=== PATIENT | female | born 1975 | race Caucasian/White ===

== ENCOUNTER 2018-05-29 11:48 | Emergency (ER) | payer OTHER, SELFPAY ==
[2018-05-29 12:02] VITALS: BP 119/79; PULSE 78; RESP 20; TEMP 36.8; O2SAT 97
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
[2018-05-29] MEDS: Acetaminophen 500 MG TAB 1000 MG PO (12:53)
[2018-05-29 13:04] LABS: Bilirubin Negative (Negative); Blood Large (Negative); Clarity Sl Cloudy; Glucose Negative (Negative); Ketones Negative (Negative); Leukocyte Esterase Negative (Negative); Nitrite Negative (Negative); Specific Gravity 1.015 (1.005-1.025); Urobilinogen 0.2 EU/dL (Up TO 0.2); pH 5.5 (5-8)
[2018-05-29 13:25] LABS: Abs Immature Grans 0.01 k/cumm (0.0-0.09); Absolute Basophil Count 0.02 k/cumm (0.0-0.2); Absolute Eosinophil Count 0.03 k/cumm (0.0-0.7); Absolute Monocyte Count 0.83 k/cumm (0.11-0.7); Absolute Neutrophil Count 7.26 k/cumm (1.2-6.7); Basophils % 0.2; Eosinophils % 0.3; HCT 42.7 % (36.0-46.0); HGB 14.2 g/dL (12.0-15.5); Immature Grans % 0.1; Lymphocytes % 18.1; Mean Corp. HGB Concentration 33.3 g/dL (32.0-36.0); Mean Corpuscular Volume 87.3 fL (80-95); Mean Platelet Volume 9.7 fL (8.0-11.0); Monocytes % 8.3; Platelet Count 287 x1000/uL (130-400); RBC 4.89 m/cumm (4.00-5.20); RBC Distribution Width 12.6 % (11.7-14.6); White Blood Cell Count 9.95 k/cumm (4.4-10.8)
[2018-05-29 13:28] LABS: WBC 0-2 HPF (0-5)
[2018-05-29 13:29] LABS: Bacteria Few HPF (Negative); C & S Indicated? No; Casts Negative LPF (Negative); Crystals Negative HPF (Negative); Epithelial Cells Rare HPF (Negative); Mucus Trace (Negative); RBC 20-50 (0-2)
[2018-05-29 13:35] LABS: ALT 22 U/L (12-78); AST 16 U/L (15-37); Albumin 4.2 g/dL (3.4-5.0); Alkaline Phosphatase 74 U/L (46-116); Anion Gap 10.2 mmol/L (3-11); BUN 11 mg/dL (7-18); Bilirubin, Total 0.5 mg/dL (0.2-1.0); CO2 26.8 mmol/L (21.0-32.0); CREATININE 0.83 mg/dL (0.55-1.02); Calcium 9.2 mg/dL (8.5-10.1); Chloride 101 mmol/L (98-107); Glucose 95 mg/dL (70-100); Potassium 3.8 mmol/L (3.5-5.1); Sodium 138 mmol/L (136-145)
[2018-05-29] MEDS: Omnipaque 350 MG/ML 100 ML BTL IJ (14:29)
[2018-05-29 15:03] VITALS: BP 100/50; PULSE 60; RESP 16; O2SAT 97
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
--- NOTE | 2018-06-05 10:52 | PDOC.ERCMPRO ---
Care Management Progress Note 06/05-Dr Trejo requested assistance with a PCP on 05/28. Patient does not have PCP ([facility] resource protection specialist). Referral faxed to [facility]. [facility] faxed back that they have mailed new patient packet to patient to establish care.
== END 2018-05-29 15:29 | disposition home or self-care (01) ==
PROVIDERS: Emergency Provider Student in an Organized Health Care Education/Training Program
DX: S06.0X0A Concussion without loss of consciousness, initial encounter (principal); M54.9 Dorsalgia, unspecified; R10.30 Lower abdominal pain, unspecified; M54.2 Cervicalgia; M48.54XA Collapsed vertebra, not elsewhere classified, thoracic region, initial encounter for fracture; D25.9 Leiomyoma of uterus, unspecified; V49.9XXA Car occupant (driver) (passenger) injured in unspecified traffic accident, initial encounter; M79.18 Myalgia, other site
CPT/HCPCS: 36415; 74177; 80053; 81025; 99285; 70450; 71260; 72125; 81003; 81015; 85025; 99284; J3490

== ENCOUNTER 2018-06-13 12:46 | Outpatient (REF) | payer OTHER, SELFPAY ==
--- NOTE | 2018-06-13 12:15 | PAPFT_PTH ---
PATIENT: Epifanio Herman LOC: [facility] U#:[id number] AGE/SX: 42/F ROOM: RE06/13/[address]: Viv Marrero MD : 1975 BED: DIS: 06/13/2018 SPEC #: [id number] RECD: 06/13/18 12:53 STATUS: LAURA REQ #: [id number] MONALISA: 06/13/18 12:[address]: Viv Marrero DEPT: [facility] Cytology RECD BY: Michelle Pruett ENTERED: 06/13/18 12:54 SP TYPE: PAPFT OTHR DR: Unknown,Unknown Tissues: 1 - CX/ENDOCX FOR PAP SMEARS Procedures: PAP THIN PREP/UVM Screening HPV DNA PROBE Comments: [id number]
== END 2018-06-13 13:06 ==
LOC: LBN 12:46
PROVIDERS: Visit Provider Obstetrics & Gynecology
DX: Z12.4 Encounter for screening for malignant neoplasm of cervix (principal); Z11.51 Encounter for screening for human papillomavirus (HPV)
CPT/HCPCS: 88142; 87624

== ENCOUNTER 2018-09-12 00:32 | Outpatient (CLI) | payer OTHER, SELFPAY ==
--- NOTE | 2018-09-12 07:58 | DI.US_ITS ---
SYMPTOM/DIAGNOSIS: F/U UTERINE FIBROID, d25.9 PELVIC ULTRASOUND: A transabdominal and transvaginal examination was carried out according to the usual protocol. The uterus measures 8.7 cm in length , 4.4 cm in height, and 4.8 cm in width with an endometrial stripe thickness of 11.4 mm. There is an anterior fundal and uterine fibroid which measures 8.6 x 7.6 x 8.4 cm and multiple small Nabothian cysts are seen. An IUD is noted in the endometrial cavity. There is an 8.6 x 7.6 x 8.4 cm anterior uterine fibroid. The right ovary measures 3.6 x 1.5 x 1.0 cm and the left ovary 4.3 x 1.7 x 1.8 cm. The kidneys are unremarkable. There is no evidence of pelvic free fluid. SUMMARY: An IUD is noted in the endometrial cavity. There is an 8.6 x 7.6 x 8.4 cm anterior uterine fibroid.
== END 2018-09-12 00:52 ==
PROVIDERS: Visit Provider Obstetrics & Gynecology
DX: D25.9 Leiomyoma of uterus, unspecified (principal); N88.8 Other specified noninflammatory disorders of cervix uteri; Z97.5 Presence of (intrauterine) contraceptive device
CPT/HCPCS: 76830; 76856

== ENCOUNTER 2018-09-20 01:04 | Outpatient (CLI) | payer OTHER, SELFPAY ==
--- NOTE | 2018-09-20 09:30 | DI.MAMMO_ITS ---
SYMPTOM/DIAGNOSIS: SCREENING, Z12.31, BASELINE MAMMOGRAMS: Mammograms were interpreted according to the usual protocol including computer analysis with CAD system, tomosynthesis and C view imaging. The baseline examination reveals breast tissue of moderate radiodensity. The possibility of a small mass in the superior portion of the left breast is raised based on the mediolateral projection. There are no suspicious calcifications. SUMMARY: Question small area of nodularity in the superior left breast. Further assessment with a mediolateral compression spot film and ultrasound is recommended. Category 0. Breast density, category B. MQSA ASSESSMENT OF FINDINGS: Incomplete: Needs additional imaging evaluation. Category 0. Patient will receive a letter notifying them of these results. BI-RADS category B. There are scattered areas of fibroglandular density.
== END 2018-09-20 01:24 ==
PROVIDERS: Visit Provider Obstetrics & Gynecology
DX: Z12.31 Encounter for screening mammogram for malignant neoplasm of breast (principal); R92.8 Other abnormal and inconclusive findings on diagnostic imaging of breast
CPT/HCPCS: 77063; 77067

== ENCOUNTER 2018-10-25 00:27 | Outpatient (CLI) | payer OTHER, SELFPAY ==
--- NOTE | 2018-10-25 09:49 | DI.COMBO_ITS ---
SYMPTOM/DIAGNOSIS: F/U MAMMO, ? SMALL AREA OF NODULARITY LT BREAST LEFT BREAST ADDITIONAL VIEWS AND LEFT BREAST ULTRASOUND: Additional images are interpreted according to the usual protocol including tomosynthesis and 2D imaging. Mediolateral compression spot films of the left breast were obtained today and again reveal the region of increased density in the superior portion of the breast. No discrete mass is seen. At ultrasound, there is no evidence of a cyst or mass. SUMMARY: No evidence of malignancy. Category 1. Yearly screening mammography is recommended. [facility] ASSESSMENT OF FINDINGS: Negative. Category 1. Patient will receive a letter notifying them of these results. BI-RADS category B. There are scattered areas of fibroglandular density.
== END 2018-10-25 00:47 ==
PROVIDERS: Visit Provider Obstetrics & Gynecology
DX: Z12.31 Encounter for screening mammogram for malignant neoplasm of breast (principal); R92.8 Other abnormal and inconclusive findings on diagnostic imaging of breast; N60.82 Other benign mammary dysplasias of left breast
CPT/HCPCS: 76642; 77063; 77067

== ENCOUNTER 2020-03-11 01:30 | Outpatient (CLI) | payer OTHER, SELFPAY ==
[2020-03-13 17:44] LABS: Patient Race White; SARS-CoV-2 RNA Undetected (Undetected); SARS-CoV-2 Specimen Source Nasopharynx
== END 2020-03-11 01:50 ==
PROVIDERS: Visit Provider Family Medicine
DX: Z11.59 Encounter for screening for other viral diseases (principal)
CPT/HCPCS: U0003

== ENCOUNTER 2022-05-19 14:59 | Outpatient (REF) | payer BC, SELFPAY ==
--- NOTE | 2022-05-19 14:30 | PAPFT_PTH ---
PATIENT: Epifanio Herman LOC: [facility] U#:[id number] AGE/SX: 46/F ROOM: RE05/19/[address]: Monica Martinez : 1975 BED: DIS: 05/19/2022 SPEC #: [id number] RECD: 05/19/22 17:43 STATUS: LAURA REEvangelina #: [id number] MONALISA: 05/19/22 14:[address]: Monica Martinez DEPT: [facility] Cytology RECD BY: Michelle Pruett ENTERED: 05/19/22 17:43 SP TYPE: PAPFT EBEN DR: Unknown,Unknown Tissues: 1 - CX/ENDOCX FOR PAP SMEARS Procedures: PAP THIN PREP/[facility] Screening HPV DNA PROBE Comments: [id number]
== END 2022-05-19 15:00 | disposition home or self-care (01) ==
LOC: LBN 14:59
PROVIDERS: Visit Provider Obstetrics & Gynecology Gynecology
DX: Z12.4 Encounter for screening for malignant neoplasm of cervix (principal); Z87.410 Personal history of cervical dysplasia; R87.618 Other abnormal cytological findings on specimens from cervix uteri; Z11.51 Encounter for screening for human papillomavirus (HPV)
CPT/HCPCS: 88142; 87624

== ENCOUNTER 2022-09-13 00:53 | Outpatient (CLI) | payer BC, SELFPAY | END 2022-09-13 01:13 | PROVIDERS: Visit Provider Obstetrics & Gynecology Gynecology | DX: Z12.31 Encounter for screening mammogram for malignant neoplasm of breast (principal) | CPT/HCPCS: 77063; 77067 ==

== ENCOUNTER 2024-09-06 14:53 | Emergency (ER) | payer BC, SELFPAY ==
[2024-09-06 14:55] VITALS: BP 146/77; PULSE 80; RESP 14; TEMP 36.8; O2SAT 99
[2024-09-06] MEDS: Lidocaine 5% Patch 1 PATCH TP (15:57)
[2024-09-06] MEDS: Ketorolac 15 MG/ML VIAL IVP (15:57)
[2024-09-06] MEDS: Cyclobenzaprine 10 MG TAB PO (15:57)
[2024-09-06] MEDS: Lactated Ringers 1,000 ML 1000 ML IV (15:57)
[2024-09-06] MEDS: ACETAMINOPHEN 1,000 MG/100 ML BAG 400 MG IVPB (15:58)
[2024-09-06 16:01] LABS: Lactate 0.5 mmol/L (<or=2.0)
[2024-09-06 16:04] LABS: Abs Immature Grans 0.04 10^3/uL (0.0-0.06); Absolute Basophil Count 0.03 10^3/uL (0.0-0.2); Absolute Monocyte Count 0.96 10^3/uL (0.1-0.8); Absolute Neutrophil Count 6.93 10^3/uL (1.2-6.7); Basophils % 0.3 %; HCT 41.2 % (36.0-46.0); HGB 13.8 g/dL (11.2-15.7); Immature Grans % 0.4 %; Lymphocytes % 22.9 %; MCH 29.6 pg (27.0-33.0); MCHC 33.5 % (32.0-36.0); MCV 88 fL (80-95); MPV 9.2 fL (8.0-11.0); Monocytes % 9.2 %; Neutrophils % 66.2 %; Platelet Count 275 10^3/uL (130-400); RBC 4.67 10^6/uL (3.93-5.22); RDW 12.3 % (11.7-14.6); RDW-SD 39.6 fL; WBC 10.46 10^3/uL (4.4-10.8)
[2024-09-06 16:08] LABS: ESR 6 mm/hr (0-20)
[2024-09-06 16:16] LABS: PTT Activated 24.8 sec (20.6-30.2); Prothrombin Time 10.1 sec (9.1-11.1)
[2024-09-06 16:20] LABS: ALT 27 U/L (14-59); AST 17 U/L (15-37); Albumin 4.1 g/dL (3.4-5.0); Alkaline Phosphatase 86 U/L (46-116); Anion Gap 8.1 mmol/L (3-11); BUN 11 mg/dL (7-18); Bilirubin, Total 0.4 mg/dL (0.2-1.0); CO2 25.9 mmol/L (21.0-32.0); CREATININE 0.7 mg/dL (0.55-1.02); Calcium 9.6 mg/dL (8.5-10.1); Chloride 105 mmol/L (98-107); Estimated GFR 107.28 (mL/min/1.73m2); Glucose 92 mg/dL (74-106); Sodium 139 mmol/L (136-145); Total Protein 7.6 g/dL (6.4-8.2)
[2024-09-06 16:31] LABS: Procalcitonin < 0.10 ng/mL
[2024-09-06 16:34] LABS: COVID-19 PCR Negative (Negative); Influenza A PCR Negative (Negative); Influenza B PCR Negative (Negative); RSV PCR Negative (Negative)
[2024-09-06 16:37] LABS: Source Nasopharynx
[2024-09-06] MEDS: Normal Saline - Diluent 50 ML VIAL IJ (16:41)
[2024-09-06] MEDS: Omnipaque 350 MG/ML 100 ML BTL IJ (16:42)
--- NOTE | 2024-09-06 16:43 | ED.GENADUL_ITS ---
Discharge Plan Disposition Patient Disposition: Home Condition: Good Discharge Details Clinical Impression: Acute neck pain Primary Care Provider: Unknown,Unknown ED Provider: Lane Trejo Home Meds and New Rx's Prescriptions: New cyclobenzaprine 10 mg tablet 10 mg PO TID Qty: 14 0RF lidocaine [Lidoderm] 5 % adhesive patch,medicated 1 patch Topical Q24H Qty: 15 0RF No Action ParaGard T 380A 380 square mm intrauterine device 1 device intrauterine ONCE Rx Instructions: as a single dose Discharge Instructions Instructions: Neck Pain ED Additional Instructions: At this time your laboratory workup has returned very reassuring. There is no e vidence to suggest significant infection based on your labs. Your imaging has also returned normal with no signs of significant vascular, osseous or infectious pathology. As we discussed together the symptoms likely stem from a muscular spasm component. However the definitive way to rule out certain neck pathologies is with a lumbar puncture. Together we have decided to hold off on any lumbar puncture at this time as there is no clear indication for it given the workup results. However if your symptoms do not improve, or worsen we may need further discussion for potential puncture in the future. In the meantime, please continue to take Tylenol and Motrin for pain. You can take 1000 mg of Tylenol every 6 hours and 800 mg of Motrin every 6 hours. These are the maximum doses. Please take the muscle relaxant cyclobenzaprine as prescribed. but do not take it when driving or operating any vehicles or heavy machinery, swimming, taking long baths, or operating firearms. Please apply the Lidoderm patches as prescribed. If you notice any worsening of your symptoms, or any new symptoms such as vomiting, diarrhea, fever, chills, shortness of breath, chest pain, numbness, weakness, or fainting , please return immediately to the emergency department for reevaluation. Please follow up with your primary care provider as soon as possible for reassessment and reevaluation. As always, it was a pleasure participating in your medical care today. Discharge Data Discharge Date/Time-TO BE ENTERED AT DEPARTURE: 09/06/24 18:37 HPI General Date/Time Provider Initiated Documentation: 09/06/24 14:57 . HPI Narrative: This is a very pleasant 48-year-old female with no significant past medical history, who does have an intrauterine device in place which is a copper device, she also has a history of a fibroid in the past, who presents today for evaluation of neck pain. Patient states that last night in the evening she had a very very mild headache, this is since completely resolved. However later during the night she developed a neck tightness that woke her up out of sleep. It was in the mid to upper portion of her neck. It felt like a vice psychologist research assistant. It continued throughout the night and was present during the day. She describes pain when she tries to move her neck in various directions. She went to the physical therapist today who recommended further evaluation in the emergency department for potential nonmusculoskeletal assessment. Patient denies any trauma, choking, sudden movements, or recent chiropractic manipulation of her neck. She denies any fever or chills. She denies any vision changes, numbness or tingling. She denies any chest pain or shortness of breath. She and her partner were recently in [place] for some time, and just got back about 2 weeks ago. She denies any frontal headache pain. She denies any personal history of meningitis. She denies any other complaints at this time. No family or personal history of Noemi-Danlos syndrome, Marfan syndrome, aneurysms or brain cancer. She did take some ibuprofen around noon without significant improvement of her symptoms. Related Data Home Medications ?Medication ?Instructions ?Recorded ?Confirmed copper 380 square mm intrauterine 1 device intrauterine ONCE 05/19/22 09/06/24 device (ParaGard T 380A) cyclobenzaprine 10 mg tablet 10 mg PO TID #14 tabs 09/06/24 lidocaine 5 % topical patch 1 patch topical Q24H #15 ea 09/06/24 (Lidoderm) Previous Rx's ?Medication ?Instructions ?Recorded cyclobenzaprine 10 mg tablet 10 mg PO TID #14 tabs 09/06/24 lidocaine 5 % topical patch 1 patch topical Q24H #15 ea 09/06/24 (Lidoderm) Allergies Allergy/AdvReac Type Severity Reaction Status Date / Time No Known Allergies Allergy Verified 09/06/24 14:55 General Stated Complaint: Nk/Back Pain EMMIE: 4 Exam Narrative Exam Narrative: 1.Const: Well-nourished, Well-developed, appearing stated age 2.Eyes: PERRL, no conjunctival injection, and symmetrical lids. 3.ENT: Atraumatic external nose and ears. Moist MM. Neck: Symmetric, trachea midline, No thyromegaly. No evidence of otitis media. No erythema in the posterior oropharynx. Patient demonstrates slight restriction for forward flexion of the neck, as well as lateral rotation. Mild subjective achiness/tenderness over the erector spinae musculature of the superior aspect of the neck going towards the nuchal component. However she demonstrates a negative Kernig's and Brudzinski sign. No bruits noted in the neck. No evidence of rash. 4.CVS: +S1/S2, Peripheral pulses 2+ and equal in all extremities. Brisk capillary refill in all extremities. 5.RESP: Unlabored respiratory effort. Clear to auscultation bilaterally. No wheezes rales or rhonchi 6.GI: Soft, Nontender/Nondistended, No hepatosplenomegaly. No guarding or rebound. 7.MSK: Normocephalic/Atraumatic, Extremities w/o deformity or ttp No cyanosis or clubbing, Normal movement of all extremities 8.Skin: Warm, Dry. No rashes or lesions. 9.Neuro: commercial housekeeper II-XII grossly intact. Sensation grossly intact, no focal neurologic deficits. All 6 cardinal planes of vision are fully intact. No evidence of rotatory or vertical nystagmus. The patient demonstrated a normal [id number], good dexterity. There was no evidence of dysdiadochokinesia. Patient was able to ambulate without difficulty. There was no wide-based gait. Romberg testing was normal. Dctd-gy-qznt testing was normal. Sensation was intact bilaterally as well as muscle strength bilaterally for all extremities. Patient was able to verbalize butter cup with no slurring, or miss pronunciation. 10.Psych: (AAO) x3. Appropriate mood and affect Course Vital Signs Vital signs: Vital Signs Temperature 36.8 C 09/06/24 14:55 Pulse 80 09/06/24 14:55 Respiratory Rate 14 09/06/24 14:55 Blood Pressure 146/77 H 09/06/24 14:55 Pulse Oximetry 99 09/06/24 14:55 Temperature 36.8 C 09/06/24 14:55 Pulse 80 09/06/24 14:55 Respiratory Rate 14 09/06/24 14:55 Blood Pressure 146/77 H 09/06/24 14:55 Blood Pressure Position Sitting 09/06/24 14:55 Pulse Oximetry 99 09/06/24 14:55 Oxygen Delivery Method Room Air 09/06/24 14:55 Oxygen Flow Rate 0 09/06/24 14:55 Pain Level 9 09/06/24 16:09 Lab/Test Results Lab/Test Results: Laboratory Tests Range/Units 09/06/24 09/06/24 15:46 15:54 WBC (4.4-10.8) 10^3/uL 10.46 RBC (3.93-5.22) 10^6/uL 4.67 Hgb (11.2-15.7) g/dL 13.8 Hct (36.0-46.0) % 41.2 MCV (80-95) fL 88 MCH (27.0-33.0) pg 29.6 MCHC (32.0-36.0) % 33.5 RDW (11.7-14.6) % 12.3 Plt Count (130-400) 10^3/uL 275 MPV (8.0-11.0) fL 9.2 Immature Gran % % 0.4 Neutrophils % % 66.2 Lymphocytes % % 22.9 Monocytes % % 9.2 Eosinophils % % 1.0 Basophils % % 0.3 Nucleated RBC % (0.0-0.3) % 0.0 Absolute Neutrophils (1.2-6.7) 10^3/uL 6.93 H Absolute Lymphocytes (1.2-3.4) 10^3/uL 2.40 Absolute Monocytes (0.1-0.8) 10^3/uL 0.96 H Absolute Eosinophils (0.0-0.7) 10^3/uL 0.10 Absolute Basophils (0.0-0.2) 10^3/uL 0.03 ESR (0-20) mm/hr 6 PT (9.1-11.1) sec 10.1 INR (0.9-1.1) 1.0 APTT (20.6-30.2) sec 24.8 VBG Lactate (<or=2.0) mmol/L 0.5 Sodium (136-145) mmol/L 139 Potassium (3.5-5.1) mmol/L 4.0 Chloride (98-107) mmol/L 105 Carbon Dioxide (21.0-32.0) mmol/L 25.9 Anion Gap (3-11) mmol/L 8.1 BUN (7-18) mg/dL 11 Creatinine (0.55-1.02) mg/dL 0.7 Est GFR (CKD-EPI 2020) (mL/min/1.73m2) 107.28 Glucose (74-106) mg/dL 92 Calcium (8.5-10.1) mg/dL 9.6 Total Bilirubin (0.2-1.0) mg/dL 0.4 AST (15-37) U/L 17 ALT (14-59) U/L 27 Alkaline Phosphatase (46-116) U/L 86 C-Reactive Protein (<or=0.5) mg/dL 0.70 H Total Protein (6.4-8.2) g/dL 7.6 Albumin (3.4-5.0) g/dL 4.1 Procalcitonin ng/mL < 0.10 COVID-19 Source Nasopharynx SARS-CoV-2 (PCR) (Negative) Negative Influenza Type A (PCR) (Negative) Negative Influenza Type B (PCR) (Negative) Negative RSV (PCR) (Negative) Negative Medical Decision Making This is a very pleasant 48-year-old female with no significant past medical history, who does have an intrauterine device in place which is a copper device, she also has a history of a fibroid in the past, who presents today for evaluation of neck pain. Patient states that last night in the evening she had a very very mild headache, this is since completely resolved. However later during the night she developed a neck tightness that woke her up out of sleep. It was in the mid to upper portion of her neck. It felt like a vice psychologist research assistant. It continued throughout the night and was present during the day. She describes pain when she tries to move her neck in various directions. She went to the physical therapist today who recommended further evaluation in the emergency department for potential nonmusculoskeletal assessment. Patient denies any trauma, choking, sudden movements, or recent chiropractic manipulation of her neck. She denies any fever or chills. She denies any vision changes, numbness or tingling. She denies any chest pain or shortness of breath. She and her partner were recently in [place] for some time, and just got back about 2 weeks ago. She denies any frontal headache pain. She denies any personal history of meningitis. She denies any other complaints at this time. No family or personal history of Noemi-Danlos syndrome, Marfan syndrome, aneurysms or brain cancer. She did take some ibuprofen around noon without significant improvement of her symptoms. Patient demonstrates slight restriction for forward flexion of the neck, as well as lateral rotation. Mild subjective achiness/tenderness over the erector spinae musculature of the superior aspect of the neck going towards the nuchal component. However she demonstrates a negative Kernig's and Brudzinski sign. No bruits noted in the neck. No evidence of rash. Cause of symptomatology is uncertain. Differential is certainly highest for musculoskeletal component or muscle spasm. Meningitis is certainly less likely with no fever, chills, or headache as she has no headache whatsoever. Patient is from [place] recently, there is concern, albeit low likelihood for parasitic component. Vascular pathology like vertebral artery dissection is also on the differential but without recent manipulation this is less likely. With no concerning red flags to suggest meningitis, aside for the presence of the neck stiffness I do not feel that emergent lumbar puncture is indicated currently, but I do feel that further imaging and hematology workup is indicated. We will evaluate with inflammatory markers, we will get a CT scan of the neck as well as a vascular assessment of that area. Will also treat for potential musculoskeletal component with Lidoderm patch, muscle relaxant and NSAID therapy. Will monitor closely and reassess. 6:30 PM Laboratory workup has returned, no white count, bandemia, or significant left shift. ESR is normal, CRP is minimally elevated at 0.7 and is not indicative of significant inflammatory component. Lactate is normal. Procalcitonin is normal suggesting no evidence to suggest sepsis. COVID flu and RSV testing is negative. CT imaging shows no occlusion, acute intercranial process, or vascular pathology. On reassessment patient still has some mild pain in the neck but feels notable change after medications. We had a long discussion between the patient myself and her partner. We discussed risks and benefits of lumbar puncture, deferment of lumbar puncture, the risks and benefits of both. At this time with an improvement of her symptoms, the laboratory workup clinically inconsistent with a significant infectious clinical picture, no headache to suggest meningitis, and no other neurologic abnormality or concerning component, patient has decided to defer lumbar puncture at this time. We will use continued muscle relaxers NSAID therapy and Lidoderm patch at home. If the patient has worsening of her symptoms or no improvement of her symptoms over the next few days then I have encouraged her to return for reasse ssment for potential lumbar puncture or at the very least discussion of it. Patient understands. Patient will be discharged home. Discussed red flags for which to return. I have extensively reviewed the treatment plan and discharge instructions with the patient. I have addressed all patient concerns at this time. The patient was made aware of what symptoms to monitor for that would warrant a return to the emergency department. Discussed the plan with the patient, they demonstrate verbal understanding and agreement with our assessment and plan at this time. The documentation in this chart was dictated using [employer] dictation software. Please excuse any dictation errors. FINDINGS: CT Head W/O and W: Ventricles and Extra axial spaces: Normal in size and morphology for the patient's age. Hemorrhage: None. Cerebral parenchyma: No evidence of an acute territorial infarct is seen at this time. Midline shift: None. Brainstem/Cerebellum: Normal. Calvarium: Normal. Visualized Paranasal sinuses/Mastoids: The mucous retention cyst or polyp in the left maxillary sinus. The remaining visualized paranasal sinuses and mastoid air cells are clear. Soft Tissues: Unremarkable. Enhancement: Unremarkable. CTA Neck W: Common Carotid: Right: No dissection, occlusion or significant stenosis. Left: No dissection, occlusion or significant stenosis. External Carotid: Right: No occlusion or significant stenosis. Left: No occlusion or significant stenosis. Internal Carotid: Right: No dissection, occlusion or significant stenosis. Left: No dissection, occlusion or significant stenosis. Vertebral Artery: Right: No dissection, occlusion or significant stenosis. Left: No dissection, occlusion or significant stenosis. Lung Apices: Normal. Bones: Within normal limits for the patient's age. Age-appropriate degenerative changes are seen in the cervical spine. There is straightening of the normal cervical lordosis which may be due to muscle spasm or patient positioning. Soft Tissues: Normal. Thyroid gland: Unremarkable. CTA Brain W: Internal Carotid Arteries: No evidence of an aneurysm, occlusion or significant stenosis. Anterior Cerebral Arteries: Right: No aneurysm, occlusion or significant stenosis. Left: No aneurysm, occlusion or significant stenosis. Middle Cerebral Arteries: Right: No aneurysm, occlusion or significant stenosis. Left: No aneurysm, occlusion or significant stenosis. Posterior Cerebral Arteries: Right: No aneurysm, occlusion or significant stenosis. Left: No aneurysm, occlusion or significant stenosis. Vertebral Arteries: Right: No aneurysm, occlusion or significant stenosis. Left: No aneurysm, occlusion or significant stenosis. Basilar Artery: No aneurysm, occlusion or significant stenosis. IMPRESSION: 1. No large vessel occlusion or significant stenosis on the CT angiography of the head. 2. No acute intracranial process. 3. No occlusion or significant stenosis on the CT angiography of the neck. Quality:SDOH Health Related Social Needs: No Data to Display PFSH All Active Problems (Updated 09/06/24 @ 18:[address] Trejo DO) Acute neck pain (Acute) IUD (intrauterine device) in place (Acute) 2011-ParaGard inserted. Well-tolerated by patient Fibroid (Chronic) 2018-anterior fundal 86x 76x 84 mm Medical History (Updated 09/06/24 @ 18:[address] Trejo DO) Fracture cervical vertebra-closed Fracture of C7 about 15 years ago due to snowboarding accident. 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 Sexually active: Yes Do you feel safe in your relationship?: Yes Female Reproductive History Menstrual control method: copper IUCD (2011) History History 2 Para 0 Hx # Term Pregnancies Multiple births Hx # Pregnancies Ectopic pregnancies AB induced 2 Hx Number of Living Children AB spontaneous PAWSS Have you Been Recently Intoxicated or Drunk Within the Last 30 days?: No Have you Ever Experienced Previous Episodes of Alcohol Withdrawal?: No Have you ever Experienced Withdrawal Seizures?: No Have you ever Experienced Delirium Tremens(DT)s?: No Have you ever undergone Alcohol Rehabilitation Treatment (i.e, inpt ot outpatient treatment programs)?: No Have you ever Experienced Blackouts?: No Have you ever Combined Alcohol with other Downers within the last 90 days?: No Have you ever Combined Alcohol with any other Substance of Abuse during the last 90 days?: No Positive Blood Alcohol level on Presentation? [PCS.BAL]: No Evidence of Increased Autonomic Activity (i.e. HR>120, tremor, sweating, agitation, nausea)?: No Result: 0
--- NOTE | 2024-09-06 16:56 | DI.CT_ITS ---
Exam(s) CT BRAIN NECK CTA EXAM: CT BRAIN NECK CTA CLINICAL HISTORY: posterior neck pain and HE, eval for mass, dissect. TECHNIQUE: Imaging Protocol: Axial CT angiography was performed with multi-slice acquisition and mu lti-planar and/or 3D reconstructions. CONTRAST MATERIAL: Intravenous: Omnipaque 350 contrast volume:70 mL FINDINGS: CT Head W/O and W: Ventricles and Extra axial spaces: Normal in size and morphology for the patient's age. Hemorrhage: None. Cerebral parenchyma: No evidence of an acute territorial infarct is seen at this time. Midline shift: None. Brainstem/Cerebellum: Normal. Calvarium: Normal. Visualized Paranasal sinuses/Mastoids: The mucous retention cyst or polyp in the left maxillary sinus . The remaining visualized paranasal sinuses and mastoid air cells are clear. Soft Tissues: Unremarkable. Enhancement: Unremarkable. CTA Neck W: Common Carotid: Right: No dissection, occlusion or significant stenosis. Left: No dissection, occlusion or significant stenosis. External Carotid: Right: No occlusion or significant stenosis. Left: No occlusion or significant stenosis. Internal Carotid: Right: No dissection, occlusion or significant stenosis. Left: No dissection, occlusion or significant stenosis. Vertebral Artery: Right: No dissection, occlusion or significant stenosis. Left: No dissection, occlusion or significant stenosis. Lung Apices: Normal. Bones: Within normal limits for the patient's age. Age-appropriate degenerative changes are seen in t he cervical spine. There is straightening of the normal cervical lordosis which may be due to muscle spasm or patient positioning. Soft Tissues: Normal. Thyroid gland: Unremarkable. CTA Brain W: Internal Carotid Arteries: No evidence of an aneurysm, occlusion or significant stenosis. Anterior Cerebral Arteries: Right: No aneurysm, occlusion or significant stenosis. Left: No aneurysm, occlusion or significant stenosis. Middle Cerebral Arteries: Right: No aneurysm, occlusion or significant stenosis. Left: No aneurysm, occlusion or significant stenosis. Posterior Cerebral Arteries: Right: No aneurysm, occlusion or significant stenosis. Left: No aneurysm, occlusion or significant stenosis. Vertebral Arteries: Right: No aneurysm, occlusion or significant stenosis. Left: No aneurysm, occlusion or significant stenosis. Basilar Artery: No aneurysm, occlusion or significant stenosis. IMPRESSION: 1. No large vessel occlusion or significant stenosis on the CT angiography of the head. 2. No acute intracranial process. 3. No occlusion or significant stenosis on the CT angiography of the neck. RADIATION DOSE DELIVERED: 2,076.51mGy.cm Total DLP DATA REPOSITORY: All CT scans at this facility are submitted to the National Radiology Data Registry (NRDR) Dose Index Registry (DIR) with the [employer] (ACR). RADIATION OPTIMIZATION: All CT scans at this facility use at least one of these dose optimization te chniques: automated exposure control; mA and/or kV adjustment per patient size (includes targeted exa ms where dose is matched to clinical indication); or iterative reconstruction.
[2024-09-06] MEDS: Cyclobenzaprine 10 MG TAB, 3 TABS/BTL PO (18:32)
--- NOTE | 2024-09-08 11:09 | W.ED.FU ---
Date of service: 09/08/24 Time of Service: 11:09 Follow Up Plan: Patient did call back today at 11:09 AM she is definitely feeling back of her neck which seems to be improving, especially with muscle relaxants. She denies any headache, she denies any vision changes, numbness or tingling. She denies any fever or chills or systemic symptoms whatsoever. We have then discussed potential reassessment, potential lumbar puncture, or potential mindful watching and reassessment. At this time patient feels that with her improvement we will hold off on any lumbar puncture. Will continue to monitor closely. She will follow-up with me in the next day or so if she is not having any further improvement. I have extensively reviewed the treatment plan and discharge instructions with the patient. I have addressed all patient concerns at this time. The patient was made aware of what symptoms to monitor for that would warrant a return to the emergency department. Discussed the plan with the patient, they demonstrate verbal understanding and agreement with our assessment and plan at this time. The documentation in this chart was dictated using [employer] dictation software. Please excuse any dictation errors.
== END 2024-09-06 18:37 | disposition home or self-care (01) ==
PROVIDERS: Emergency Provider Student in an Organized Health Care Education/Training Program
DX: M54.2 Cervicalgia (principal); R51.9 Headache, unspecified
CPT/HCPCS: 36415; 70496; 70498; 80053; 84145; 85652; 87637; 96361; 96365; 96375; 99285; 83605; 85025; 85610; 85730; 86140; J0131; J1885; J3490